=== PATIENT | male | born 1995 | race Two or more races ===

== ENCOUNTER 2017-06-25 04:10 | Emergency (ER) | payer BC ==
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
[2017-06-25 06:07] VITALS: BP 110/70
== END 2017-06-25 06:06 | disposition home or self-care (01) ==
LOC: ED 04:10
DX: S61.411A Laceration without foreign body of right hand, initial encounter (principal); W45.8XXA Other foreign body or object entering through skin, initial encounter; W27.2XXA Contact with scissors, initial encounter; Y92.9 Unspecified place or not applicable
CPT/HCPCS: 12001; 99281